=== PATIENT | male | born 1935 | race Caucasian/White ===

== ENCOUNTER 2020-12-06 10:11 | Outpatient (CLI) | payer MEDICARE ==
[~2020-12-06 10:11] MED LIST: AMLO1CAP2 PO; ASPI81TA52 PO; CHOL10008 PO; CYAN100019 PO; ESOM40CA49 PO; HYDR-4353 PO
[2020-12-06 10:51] LABS: BASOPHILS # (AUTO) 0.1 X10'3 (0-0.2); BASOPHILS % (AUTO) 1.4 % (0-1); EOSINOPHILS # (AUTO) 0.2 X10'3 (0-0.9); EOSINOPHILS % (AUTO) 2.2 % (0-6); HEMATOCRIT 43.5 % (42.0-52.0); HEMOGLOBIN 14.2 g/dl (14.0-17.9); LYMPHOCYTES # (AUTO) 1.3 X10'3 (1.1-4.8); LYMPHOCYTES % (AUTO) 18.1 % (21-51); MEAN CORPUSCULAR HEMOGLOBIN 29.7 PG (27.0-31.0); MEAN CORPUSCULAR HGB CONC 32.7 g/dL (33.0-36.5); MEAN CORPUSCULAR VOLUME 90.9 FL (78-98); MEAN PLATELET VOLUME 7.9 FL (7.4-10.4); MONOCYTES # (AUTO) 0.5 X10'3 (0-0.9); MONOCYTES % (AUTO) 6.5 % (2-12); NEUTROPHILS # (AUTO) 5.2 X10'3 (1.8-7.7); NEUTROPHILS % (AUTO) 71.8 % (42-75); PLATELET COUNT 246 X10'3 (140-440); RED BLOOD COUNT 4.78 X10'6 (4.70-6.10); RED CELL DISTRIBUTION WIDTH 14.5 % (11.5-14.5); WHITE BLOOD COUNT 7.3 X10'3 (4.5-11.0)
[2020-12-06 11:04] LABS: PARTIAL THROMBOPLASTIN TIME 29 SECONDS (22-32)
[2020-12-06 11:12] LABS: ALANINE AMINOTRANSFERASE 22 U/L (12-78); ALBUMIN/GLOBULIN RATIO 1.1 (1.1-1.5); ALKALINE PHOSPHATASE 71 IU/L (46-116); ANION GAP 12 (8-16); ASPARTATE AMINO TRANSFERASE 21 U/L (10-37); BILIRUBIN,TOTAL 0.4 MG/DL (0.1-1.0); BLOOD UREA NITROGEN 23 MG/DL (7-18); BUN/CREATININE RATIO 19.7 (5.4-32.0); CALCIUM 9.8 MG/DL (8.5-10.1); CHLORIDE 109 MMOL/L (99-107); CREATININE 1.17 MG/DL (0.60-1.10); GLUCOSE 97 MG/DL (70-104); POTASSIUM 4.4 MMOL/L (3.5-5.1); SODIUM 147 MMOL/L (135-145); TOTAL CARBON DIOXIDE 26.5 MMOL/L (24-32); TOTAL PROTEIN 7.7 G/DL (6.4-8.2); eGFR 59 ML/MIN
== END 2020-12-06 23:59 | disposition home or self-care (01) ==
LOC: VAS 10:11
PROVIDERS: ATTEND Internal Medicine Cardiovascular Disease
DX: I65.23 Occlusion and stenosis of bilateral carotid arteries (principal); K42.9 Umbilical hernia without obstruction or gangrene; N40.0 Benign prostatic hyperplasia without lower urinary tract symptoms; N21.0 Calculus in bladder; N32.3 Diverticulum of bladder; K57.30 Diverticulosis of large intestine without perforation or abscess without bleeding; N28.1 Cyst of kidney, acquired; I70.8 Atherosclerosis of other arteries; K44.9 Diaphragmatic hernia without obstruction or gangrene; I25.10 Atherosclerotic heart disease of native coronary artery without angina pectoris; R91.1 Solitary pulmonary nodule; I70.0 Atherosclerosis of aorta; I35.0 Nonrheumatic aortic (valve) stenosis; Z20.822 Contact with and (suspected) exposure to COVID-19
CPT/HCPCS: 36415; 71046; 71275; 74174; 80053; 85025; 85610; 85730; 93880; 94010; 94727; 94729; U0003

== ENCOUNTER 2020-12-13 13:09 | Outpatient (CLI) | payer MEDICARE ==
[~2020-12-13] VITALS: Ht 177.8 cm; Wt 67.8 kg
[2020-12-13 15:45] VITALS: BP 179/111
--- NOTE | 2020-12-13 15:47 | NUR ---
Patient and his daughter Mireya were in the [facility] clinic today to consult with Dr. Tipton and Dr. Logan. [facility] completed. Vital signs measured. Patient education reviewed and questions answered.
== END 2020-12-13 23:59 | disposition home or self-care (01) ==
LOC: TAVR 13:09
PROVIDERS: ATTEND Internal Medicine Cardiovascular Disease
DX: I35.0 Nonrheumatic aortic (valve) stenosis (principal); R06.02 Shortness of breath; I65.29 Occlusion and stenosis of unspecified carotid artery

== ENCOUNTER 2024-07-07 00:08 | Inpatient (IN) | payer MEDICARE, MEDICAID ==
[~2024-07-07] VITALS: Ht 170.2 cm; Wt 63.3 kg
[~2024-07-07 00:08] MED LIST changes: -ESOM40CA49 PO; +FLUT16SP26; +HYDR-3965 PO; -HYDR-4353 PO; +OMEP20CA16 PO
[2024-07-07 01:04] LABS: BASOPHILS % (AUTO) 0.2 % (0-1); EOSINOPHILS % (AUTO) 0 % (0-6); HEMOGLOBIN 13.7 g/dl (14.0-17.9); LYMPHOCYTES # (AUTO) 0.9 X10'3 (1.1-4.8); LYMPHOCYTES % (AUTO) 5.8 % (21-51); MEAN CORPUSCULAR HEMOGLOBIN 29.4 PG (27.0-31.0); MEAN CORPUSCULAR HGB CONC 32.5 g/dL (33.0-36.5); MEAN CORPUSCULAR VOLUME 90.5 FL (78-98); MONOCYTES # (AUTO) 1.1 X10'3 (0-0.9); NEUTROPHILS # (AUTO) 13.8 X10'3 (1.8-7.7); PLATELET COUNT 169 X10'3 (140-440); RED BLOOD COUNT 4.65 X10'6 (4.70-6.10); RED CELL DISTRIBUTION WIDTH 14.8 % (11.5-14.5); WHITE BLOOD COUNT 15.9 X10'3 (4.5-11.0)
[2024-07-07 01:22] LABS: ALBUMIN 3.2 G/DL (3.4-5.0); ANION GAP 13 (8-16); BLOOD UREA NITROGEN 31 MG/DL (7-18); BUN/CREATININE RATIO 14.5 (10.0-20.0); CALCIUM 9.2 MG/DL (8.5-10.1); CHLORIDE 112 MMOL/L (99-107); CREATININE 2.14 MG/DL (0.60-1.10); GLUCOSE 134 MG/DL (70-104); POTASSIUM 4.5 MMOL/L (3.5-5.1); SODIUM 145 MMOL/L (135-145); TOTAL CARBON DIOXIDE 20.5 MMOL/L (24-32); eCRCL 21 ML/MIN; eGFR 29 ML/MIN
[2024-07-07 01:38] LABS: BILIRUBIN,URINE NEGATIVE (Neg); CLARITY,URINE CLEAR (Clear); COLOR,URINE YELLOW (Yellow); GLUCOSE, URINE NEGATIVE (Neg); KETONES,URINE NEGATIVE (Neg); LEUKOCYTE ESTERASE ,URINE SMALL (Neg); NITRITES, URINE NEGATIVE (Neg); OCCULT BLOOD,URINE SMALL (Neg); PH,URINE 5.5 (4.8-8.0); PROTEIN,URINE NEGATIVE (Neg); UROBILINOGEN,URINE 0.2 E.U/dL (0.2-1.0)
[2024-07-07 01:47] LABS: UA COLLECTION TYPE NON-SPECIFIED
[2024-07-07 01:49] LABS: BACTERIA,URINE 3+ /HPF (Neg); SQUAMOUS EPITHELIAL CELL,UR MODERATE /LPF (FEW)
[2024-07-07] MEDS: morphine 4 MG/ML inj SYRINge IV ONE (02:36)
[2024-07-07] MEDS ORDERED: potassium Cl 20 mEq SR tablet PO PRN ×2 (03:45)
[2024-07-07] MEDS ORDERED: ondansetron/PF 4mg/2ml inj IV PRN (03:45)
[2024-07-07] MEDS ORDERED: potassium Cl 40MEQ/1/2NS 520ml 520 ML IV PRN (03:45)
[2024-07-07] MEDS ORDERED: morphine 2 MG/ML inj. syringe IV PRN ×2 (03:45)
[2024-07-07] MEDS ORDERED: acetaminophen 325mg tablet PO PRN (03:45)
[2024-07-07] MEDS ORDERED: magnesium sulf-water 2g/50mL 50 ML IV PRN (03:45)
[2024-07-07] MEDS ORDERED: magnesium sulf-water 4G/100mL 100 ML IV PRN (03:45)
[2024-07-07] MEDS: normal saline 1000ml 1,000 ML IV SCH (04:13)
[2024-07-07] MEDS ORDERED: HYDROmorphone inj. 0.5 MG/0.5 ML DISP.SYRIN IV PRN (04:25)
[2024-07-07] MEDS ORDERED: levoFLOXACIN-Levaquin 500mg/D5 150 ML IV ONE (04:40)
[2024-07-07] MEDS ORDERED: metroNIDAZOLE-Flagyl 500mg/NS 100 ML IV SCH (04:40)
[2024-07-07 04:54] LABS: HEMOGLOBIN A1C 5.6 % (4.5-6.2)
[2024-07-07] MEDS ORDERED: levoFLOXACIN-Levaquin 250mg/D5 50 ML IV SCH (05:00)
[2024-07-07 05:40] LABS: MAGNESIUM 1.5 MG/DL (1.5-2.4)
[2024-07-07] MEDS: levoFLOXACIN-Levaquin 500mg/D5 100 ML IV ONE (05:48)
[2024-07-07] MEDS: pantoprazole 40 MG vial IV SCH (05:48)
[2024-07-07] MEDS: K and/or MAG REPLACEMENT MC SCH (07:30)
[2024-07-07] MEDS: vancomycin 125 MG/5 ML UD oral SOLN.RECON 5mL oral syringe (FIRVANQ) PO SCH (08:00)
[2024-07-07] MEDS: heparin, porcine 5000 units/ml vial SQ SCH (08:34)
[2024-07-07] MEDS: piperacillin/tazo 4.5gm/100ml 100 ML IV ONE (08:34)
[2024-07-07] MEDS: HYDROmorphone/PF 0.2 MG/ML SYRINGE IV PRN (09:34)
[2024-07-07] MEDS ORDERED: MEMA5TAB15 PO (10:40)
[2024-07-07] MEDS ORDERED: ACET-1025 PO (10:40)
[2024-07-07] MEDS ORDERED: FLO0.4C PO (10:40)
[2024-07-07] MEDS ORDERED: LOP12.5T PO (10:40)
[2024-07-07] MEDS ORDERED: METO1TAB12 PO (10:40)
[2024-07-07] MEDS: piperacillin/tazo 3.375gm/50ml 50 ML IV SCH (14:00)
[2024-07-07 14:40] VITALS: BP 149/63; PULSE 83; RESP 16; TEMP 98.3; O2SAT 94
[2024-07-07] MEDS: HYDROcodone/acetaminophen 5mg/325mg tablet PO PRN (15:33)
[2024-07-07 15:35] VITALS: RESP 18; O2SAT 97
[2024-07-07 18:00] VITALS: BP 122/65; PULSE 66; RESP 14; TEMP 97.7; O2SAT 95
[2024-07-07 22:00] VITALS: BP 115/45; PULSE 77; RESP 15; TEMP 97.8; O2SAT 92
[2024-07-08] MEDS ORDERED: levoFLOXACIN-Levaquin 250mg/D5 50 ML IV SCH (05:00)
[2024-07-08 06:00] VITALS: BP 134/46; PULSE 70; RESP 18; TEMP 98.2; O2SAT 94
[2024-07-08 07:05] LABS: BASOPHILS # (AUTO) 0.1 X10'3 (0-0.2); BASOPHILS % (AUTO) 0.8 % (0-1); EOSINOPHILS # (AUTO) 0.1 X10'3 (0-0.9); EOSINOPHILS % (AUTO) 1.4 % (0-6); HEMATOCRIT 37.6 % (42.0-52.0); LYMPHOCYTES # (AUTO) 1.3 X10'3 (1.1-4.8); LYMPHOCYTES % (AUTO) 15.8 % (21-51); MEAN CORPUSCULAR HEMOGLOBIN 29.3 PG (27.0-31.0); MEAN CORPUSCULAR HGB CONC 31.8 g/dL (33.0-36.5); MEAN CORPUSCULAR VOLUME 92.1 FL (78-98); MEAN PLATELET VOLUME 8.3 FL (7.4-10.4); MONOCYTES # (AUTO) 0.7 X10'3 (0-0.9); MONOCYTES % (AUTO) 8.5 % (2-12); NEUTROPHILS # (AUTO) 6.1 X10'3 (1.8-7.7); NEUTROPHILS % (AUTO) 73.5 % (42-75); PLATELET COUNT 134 X10'3 (140-440); RED BLOOD COUNT 4.09 X10'6 (4.70-6.10); RED CELL DISTRIBUTION WIDTH 14.7 % (11.5-14.5); WHITE BLOOD COUNT 8.3 X10'3 (4.5-11.0)
[2024-07-08 07:48] LABS: ALANINE AMINOTRANSFERASE 20 U/L (12-78); ALBUMIN 2.6 G/DL (3.4-5.0); ALBUMIN/GLOBULIN RATIO 0.8 (1.1-1.5); ALKALINE PHOSPHATASE 75 IU/L (46-116); ANION GAP 9 (8-16); ASPARTATE AMINO TRANSFERASE 35 U/L (10-37); BILIRUBIN,TOTAL 0.6 MG/DL (0.1-1.0); BLOOD UREA NITROGEN 25 MG/DL (7-18); BUN/CREATININE RATIO 14.4 (10.0-20.0); CALCIUM 8.8 MG/DL (8.5-10.1); CHLORIDE 115 MMOL/L (99-107); CREATININE 1.74 MG/DL (0.60-1.10); FREE T4 (FREE THYROXINE) 1.01 NG/DL (0.73-1.40); GLUCOSE 74 MG/DL (70-104); MAGNESIUM 1.5 MG/DL (1.5-2.4); POTASSIUM 4.4 MMOL/L (3.5-5.1); SODIUM 146 MMOL/L (135-145); TOTAL PROTEIN 5.7 G/DL (6.4-8.2); eCRCL 26 ML/MIN; eGFR 37 ML/MIN
[2024-07-08 18:00] VITALS: BP 142/64; PULSE 75; RESP 14; TEMP 98.7; O2SAT 96
[2024-07-08 22:00] VITALS: BP 154/67; PULSE 69; RESP 19; TEMP 98.7; O2SAT 92
[2024-07-09 06:00] VITALS: BP 146/53; PULSE 59; RESP 17; TEMP 98.1; O2SAT 92
[2024-07-09 07:13] LABS: BASOPHILS # (AUTO) 0.1 X10'3 (0-0.2); BASOPHILS % (AUTO) 0.8 % (0-1); EOSINOPHILS # (AUTO) 0.2 X10'3 (0-0.9); EOSINOPHILS % (AUTO) 2.8 % (0-6); HEMOGLOBIN 11.5 g/dl (14.0-17.9); LYMPHOCYTES # (AUTO) 1.2 X10'3 (1.1-4.8); LYMPHOCYTES % (AUTO) 17.7 % (21-51); MEAN CORPUSCULAR HEMOGLOBIN 29.9 PG (27.0-31.0); MEAN CORPUSCULAR HGB CONC 32.9 g/dL (33.0-36.5); MEAN CORPUSCULAR VOLUME 90.7 FL (78-98); MEAN PLATELET VOLUME 8.3 FL (7.4-10.4); MONOCYTES # (AUTO) 0.6 X10'3 (0-0.9); NEUTROPHILS # (AUTO) 4.9 X10'3 (1.8-7.7); NEUTROPHILS % (AUTO) 70.7 % (42-75); PLATELET COUNT 148 X10'3 (140-440); RED BLOOD COUNT 3.86 X10'6 (4.70-6.10); RED CELL DISTRIBUTION WIDTH 14.4 % (11.5-14.5); WHITE BLOOD COUNT 6.9 X10'3 (4.5-11.0)
[2024-07-09 07:27] LABS: ALANINE AMINOTRANSFERASE 15 U/L (12-78); ALBUMIN 2.6 G/DL (3.4-5.0); ALBUMIN/GLOBULIN RATIO 0.8 (1.1-1.5); ALKALINE PHOSPHATASE 70 IU/L (46-116); ANION GAP 7 (8-16); ASPARTATE AMINO TRANSFERASE 27 U/L (10-37); BILIRUBIN,TOTAL 0.6 MG/DL (0.1-1.0); BLOOD UREA NITROGEN 17 MG/DL (7-18); BUN/CREATININE RATIO 11.9 (10.0-20.0); CALCIUM 8.7 MG/DL (8.5-10.1); CHLORIDE 114 MMOL/L (99-107); CREATININE 1.43 MG/DL (0.60-1.10); GLUCOSE 90 MG/DL (70-104); MAGNESIUM 1.2 MG/DL (1.5-2.4); POTASSIUM 3.7 MMOL/L (3.5-5.1); SODIUM 144 MMOL/L (135-145); TOTAL CARBON DIOXIDE 23.5 MMOL/L (24-32); TOTAL PROTEIN 5.8 G/DL (6.4-8.2); eCRCL 31 ML/MIN; eGFR 47 ML/MIN
[2024-07-09 08:00] VITALS: RESP 17; O2SAT 92
[2024-07-09 10:00] VITALS: BP 147/63; PULSE 69; RESP 14; TEMP 98.9; O2SAT 96
[2024-07-09] MEDS: magnesium Cl slow-release 64mg tablet PO PRN (10:20)
[2024-07-09] MEDS ORDERED: LEVO-65 PO (13:20)
[2024-07-09] MEDS ORDERED: METR-159 PO (13:20)
[2024-07-09] MEDS ORDERED: metoprolol PO (13:20)
[2024-07-09] MEDS ORDERED: AMOX-419 PO (15:44)
== END 2024-07-09 16:20 | disposition home or self-care (01) | DRG 871 ==
LOC: ER 00:08 → ED HOLD 03:08 → ORTHO 4S 14:30
PROVIDERS: ADMIT Internal Medicine Pulmonary Disease; ATTEND Internal Medicine
DX: A41.9 Sepsis, unspecified organism (principal); N17.0 Acute kidney failure with tubular necrosis; A09 Infectious gastroenteritis and colitis, unspecified; E87.0 Hyperosmolality and hypernatremia; N39.0 Urinary tract infection, site not specified; N18.9 Chronic kidney disease, unspecified; I12.9 Hypertensive chronic kidney disease with stage 1 through stage 4 chronic kidney disease, or unspecified chronic kidney disease; E86.0 Dehydration; N40.0 Benign prostatic hyperplasia without lower urinary tract symptoms; Z88.2 Allergy status to sulfonamides; Z79.899 Other long term (current) drug therapy; Z79.82 Long term (current) use of aspirin; Z90.49 Acquired absence of other specified parts of digestive tract; Z87.891 Personal history of nicotine dependence
CPT/HCPCS: 36415; 71045; 80048; 80053; 81001; 82570; 83036; 83605; 83735; 84133; 84145; 84300; 84439; 84443; 85025; 87040; 87077; 87081; 87088; 87186; 96374; 99291; G0378; J1171; J1644; J1956; J2270; J2470; J2543; J7030